=== PATIENT | female | born 1990 | race African-American/Black ===

== ENCOUNTER 2021-05-24 10:05 | Emergency (ER) | payer OTHER ==
[~2021-05-24] VITALS: Ht 160 cm; Wt 78.0 kg
[2021-05-24] MEDS ORDERED: KETOROLAC 15MG/ML VIAL IV ONE (11:15)
[2021-05-24] MEDS ORDERED: SODIUM CHLORIDE 0.9% 1,000 ML IV ONE (11:15)
[2021-05-24] MEDS ORDERED: ACETAMINOPHEN 325MG TABLET PO ONE (11:30)
[2021-05-24 11:44] LABS: BASOPHILS % 0.8 % (0.0-2.0); EOSINOPHILS % 3.5 % (0.0-5.0); HEMOGLOBIN. 12.4 g/dL (12.0-16.0); LYMPHOCYTES % 48.7 % (20.0-50.0); MEAN CORPUSCULAR HEMOGLOBIN 31.3 pg (28.0-32.0); MEAN CORPUSCULAR VOLUME 88.2 fL (81.0-99.0); MEAN PLATELET VOLUME 7.6 fl (7.4-10.4); MONOCYTES % 6.8 % (2.0-8.0); NEUTROPHILS % 40.2 % (40.0-76.0); PLATELET 309 x1000/uL (130-400); RED BLOOD CELL COUNT 3.96 mill/uL (4.2-5.4)
[2021-05-24 11:45] LABS: CHLORIDE 111 mEq/L (98-107)
[2021-05-24 11:51] LABS: HCG SCREEN NEGATIVE
[2021-05-24 12:17] LABS: CLARITY URINE CLOUDY (CLEAR); COLOR URINE YELLOW (YELLOW); KETONES URINE TRACE (NEGATIVE); LEUKOCYTE ESTERASE URINE 1+ (NEGATIVE); NITRITE URINE NEGATIVE (NEGATIVE); OCCULT BLOOD URINE NEGATIVE (NEGATIVE); PH URINE 5.5 (4.5-8.0); PROTEIN URINE NEGATIVE (NEGATIVE); SPECIFIC GRAVITY URINE 1.032 (1.005-1.030); UROBILINOGEN URINE 0.2 E.U./dL (0.2-1.0)
[2021-05-24] MEDS ORDERED: IBUPROFEN 400MG TABLET PO ONE (14:15)
[2021-05-24 15:10] LABS: PROTHROMBIN TIME 11.2 sec (9.6-11.0)
[2021-05-24] MEDS ORDERED: CIPR-263 MT (16:36)
[2021-05-24] MEDS ORDERED: IBUP-2029 MT (16:36)
[2021-05-24 17:05] VITALS: BP 119/72
== END 2021-05-24 17:07 | disposition home or self-care (01) ==
LOC: ER 10:05
DX: N39.0 Urinary tract infection, site not specified (principal); J45.909 Unspecified asthma, uncomplicated; Z90.49 Acquired absence of other specified parts of digestive tract
CPT/HCPCS: 36415; 74176; 80053; 81003; 83690; 84703; 85025; 85610; 96365; 99285; J7030